=== PATIENT | female | born 1980 | race African-American/Black ===

== ENCOUNTER 2020-03-31 20:52 | Emergency (ER) | payer BC ==
[2020-03-31] MEDS ORDERED: Metoclopramide HCl 10 MG/2 ML VIAL ONE (22:03)
[2020-03-31] MEDS ORDERED: diphenhydrAMINE 50 MG/ML VIAL ONE (22:03)
[2020-03-31] MEDS ORDERED: Acetaminophen 500 MG TAB ONE (22:03)
== END 2020-03-31 23:48 | disposition home or self-care (01) ==
LOC: ERS 20:52
DX: R51 Headache (principal); F17.210 Nicotine dependence, cigarettes, uncomplicated
CPT/HCPCS: 96365; 96375; J1200; J2765